=== PATIENT | female | born 1960 | race Caucasian/White ===

== ENCOUNTER 2024-03-04 14:10 | Emergency (ER) | payer OTHER, MEDICAID, SELFPAY ==
[2024-03-04 14:20] VITALS: BP 112/75; PULSE 70; RESP 16; TEMP 36.9; O2SAT 98; BMI 27.3
--- NOTE | 2024-03-04 16:40 | ED.SKABFB ---
HPI - Skin/Abscess/Foreign Bdy <GRAZYNA Damian Last Filed: 03/04/24 16:59> General Chief complaint: Skin/Abscess/Foreign Body Stated complaint: rash on neck Time Seen by Provider: 03/04/24 16:39 Source: patient Mode of arrival: Ambulatory History of Present Illness HPI narrative: This is a 63-year-old female presents emergency department due to a left-sided neck rash onset about a week ago. She states it began as a tingling and burning sensation which then developed into a rash. It has not affecting any other part of her body. Denies any fevers, nausea, vomiting, or any other concerning signs or symptoms. Related Data Previous Rx's Medication Instructions Recorded valacyclovir 1 gram tablet 1,000 mg PO TID #21 tabs 03/04/24 Allergies Allergy/AdvReac Type Severity Reaction Status Date / Time procaine [From Novocain] Allergy Verified 03/04/24 14:25 Review of Systems <GRAZYNA Damian Last Filed: 03/04/24 16:59> Review of Systems Narrative: GENERAL: Denies chills, fatigue, malaise, fever, sweats. HEENT: Denies sinus pain, ear pain, sore throat, difficulty swallowing, dizziness. RESPIRATORY: Denies dyspnea, cough, wheezing, hemoptysis, sputum. CARDIOVASCULAR: Denies chest pain, palpitations, orthopnea, edema, GASTROINTESTINAL: Denies nausea, vomiting, abdominal pain, diarrhea, constipation, melena. : Denies dysuria, frequency, incontinence, hematuria, urinary retention. MUSCULOSKELETAL: denies weakness, joint pain, or bony pain SKIN: Rash to the posterior neck, left side NEUROLOGIC: Denies weakness, headache, numbness, change in speech, confusion, seizures, incoordination. PSYCHIATRIC: No concerning psychosocial issues. 12 point review of systems is negative except for those stated above Patient History <GRAZYNA Damian Last Filed: 03/04/24 16:59> Social History Smoking Status: Never smoker Smoking Status: Never smoker Substance Use Type: does not use Exam <GRAZYNA Damian Last Filed: 03/04/24 16:59> Narrative Exam Narrative: GENERAL: Well-developed patient, in mild distress. HEAD: Atraumatic. Normocephalic. EYES: Pupils equal round and reactive. Extraocular motions intact. No scleral icterus. No injection or drainage. ENT: Nose without bleeding, purulent drainage. Throat without erythema, tonsillar hypertrophy or exudate. Airway patent. NECK: Trachea midline. Non tender EXTREMITIES: No edema or joint tenderness. NEURO: AOx3. SKIN: Erythematous vesicular rash of the posterior left neck, does not cross midline Initial Vital Signs Initial Vital Signs: Vital Signs Temperature 98.5 F 03/04/24 14:20 Pulse Rate 70 03/04/24 14:20 Respiratory Rate 16 03/04/24 14:20 Blood Pressure 112/75 03/04/24 14:20 Pulse Oximetry 98 03/04/24 14:20 Oxygen Delivery Method Room Air 03/04/24 14:20 <Smita Perera DO - Last Filed: 03/05/24 18:45> Initial Vital Signs Initial Vital Signs: Vital Signs Temperature 98.5 F 03/04/24 14:20 Pulse Rate 70 03/04/24 14:20 Respiratory Rate 16 03/04/24 14:20 Blood Pressure 112/75 03/04/24 14:20 Pulse Oximetry 98 03/04/24 14:20 Oxygen Delivery Method Room Air 03/04/24 14:20 Course <GRAZYNA Damian Last Filed: 03/04/24 16:59> Vital Signs Vital signs: Vital Signs - 8 hr 03/04/24 14:20 Temperature 98.5 F Pulse Rate 70 Respiratory Rate 16 Blood Pressure 112/75 Pulse Oximetry 98 Oxygen Delivery Method Room Air <DO Ray Huffman Last Filed: 03/05/24 18:45> Vital Signs Vital signs: Vital Signs - 8 hr 03/04/24 14:20 Temperature 98.5 F Pulse Rate 70 Respiratory Rate 16 Blood Pressure 112/75 Pulse Oximetry 98 Oxygen Delivery Method Room Air MDM - Skin/Abscess/Foreign Bdy <GRAZYNA Damian Last Filed: 03/04/24 16:59> MDM Narrative Medical decision making narrative: ED course: This is a 63-year-old female presents emergency department due to rash to the posterior neck. Based on the patient's description of the pain it may be shingles. We will treat as so. Recommend ibuprofen and Tylenol as needed for the pain. We will prescribe valacyclovir. CC: Rash Complicating co-morbidities: None Data collected from: Previous notes Medical records reviewed: Patient was not been to this emergency department in the past. Differential considered, but not limited to: Shingles, cellulitis, abscess Exam documented above, pertinent findings include: Vesicular rash of the posterior left neck Lab Test results independently reviewed as above. Pertinent findings: None were obtained Imaging studies independently reviewed: None obtained Scores Used: None MIPS Elements: None Consultations: None Treatments: None Re-evaluations: None Discussion: Discussed plan with the patient was comfortable with the plan Diagnosis: Shingles Disposition: see below, along with detailed discharge instructions that have been reviewed with patient as well as indications for ED re-evaluation and additional outpatient follow up Discharge Plan Departure Patient Disposition: Home Clinical Impression: Shingles Activity Restrictions/Additional Instructions: Thank you for coming to the [facility] Emergency Department today. It appears that the rash may be shingles. Please take the oral medications prescribed. Please use ibuprofen and Tylenol as needed for the pain. I sent the medication to [facility] in [place]. Please return to the emergency department if you develop any rashes affecting your eyes or ears, or any other concerning signs or symptoms. I hope you feel better soon. Please follow up with your primary care provider within a week if your symptoms continue. If you do not have a primary care provider please contact the [facility] Resource line at [phone]. They will ask some questions about your medical history and help you get set up with a provider in the community. Prescriptions: New valacyclovir 1 gram tablet 1,000 mg PO TID Qty: 21 0RF Stand Alone Forms: Patient Portal/API ED Sign-out <Smita Perera, DO - Last Filed: 03/05/24 18:45> Cosign ED Attending Maggie Attestation: I was immediately available in the department for consultation.
[2024-03-04 17:14] VITALS: BP 114/77; PULSE 76; RESP 16; TEMP 36.8; O2SAT 98
== END 2024-03-04 17:14 | disposition home or self-care (01) ==
PROVIDERS: Emergency Provider Physician Assistant Medical
DX: B02.9 Zoster without complications (principal)
CPT/HCPCS: 99281; 99283